=== PATIENT | male | born 2000 | race Hispanic/Latino ===

== ENCOUNTER 2022-10-22 19:19 | Emergency (ER) | payer OTHER, SELFPAY ==
[2022-10-22] MEDS ORDERED: Lidocaine 1% (PF) 30 ML VIAL ONE (19:31)
[2022-10-22] MEDS ORDERED: Oxymetazoline HCl 0.05% (30 ML BOT) ONE (19:34)
== END 2022-10-22 20:07 | disposition home or self-care (01) ==
LOC: BURERS 19:19
DX: S02.2XXA Fracture of nasal bones, initial encounter for closed fracture (principal); F17.210 Nicotine dependence, cigarettes, uncomplicated; V89.2XXA Person injured in unspecified motor-vehicle accident, traffic, initial encounter
CPT/HCPCS: 21320; J2001

== ENCOUNTER 2022-10-23 00:04 | Emergency (ER) | payer SELFPAY ==
[2022-10-23] MEDS ORDERED: Tranexamic Acid 1,000 MG/10 ML VIAL ONE (00:29)
[2022-10-23] MEDS ORDERED: Ondansetron ODT 4 MG TAB ONE (00:33)
[2022-10-23] MEDS ORDERED: HYDROcodone/Acetaminophen 10/325 mg Tablet ONE (00:45)
== END 2022-10-23 01:18 | disposition home or self-care (01) ==
LOC: BURERS 00:04
DX: R04.0 Epistaxis (principal); F17.210 Nicotine dependence, cigarettes, uncomplicated
CPT/HCPCS: 30903; Q0162